=== PATIENT | female | born 1960 | race Two or more races ===

== ENCOUNTER 2018-05-15 07:35 | Day surgery (SDC) | payer OTHER ==
[~2018-05-15 07:35] MED LIST: COZAAR25 MG PO; HORIZANT600 MG PO; LANTUS SOL100 UNIT/1; METFORMIN HCL750 MG PO; SIMVASTATIN10 MG PO; SYNTHROID75 MCG PO
[2018-05-15] MEDS ORDERED: NEURONTIN300 MG PO (17:22)
[2018-05-15] MEDS ORDERED: PERCOCET 5-3251 EACH PO (17:22)
[2018-05-15] MEDS ORDERED: POLY119PG PO (17:23)
== END 2018-05-15 21:10 | disposition home or self-care (01) ==
LOC: CIR.AMB 07:35
DX: K43.0 Incisional hernia with obstruction, without gangrene (principal)